=== PATIENT | male | born 1985 | race African-American/Black ===

== ENCOUNTER 2023-09-26 02:02 | Emergency (ER) | payer SELFPAY ==
[~2023-09-26] VITALS: Ht 177.8 cm; Wt 69.0 kg
[2023-09-26 02:30] VITALS: O2SAT 99
[2023-09-26] MEDS ORDERED: ACETAMINOPHEN 325MG TABLET PO ONE (03:00)
[2023-09-26 05:51] VITALS: BP 128/81; PULSE 96; RESP 18; TEMP 98.2
== END 2023-09-26 05:58 | disposition home or self-care (01) ==
LOC: ER 02:26
DX: M25.532 Pain in left wrist (principal); R51.9 Headache, unspecified; V98.8XXA Other specified transport accidents, initial encounter; Y93.89 Activity, other specified; Y92.89 Other specified places as the place of occurrence of the external cause; Y99.8 Other external cause status
CPT/HCPCS: 29125; 73090; 73110; 73130; 99284